=== PATIENT | female | born 1990 | race Caucasian/White ===

== ENCOUNTER 2022-08-02 23:32 | Emergency (ER) | payer OTHER, BC ==
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
[2022-08-03] MEDS ORDERED: Cyclobenzaprine 10 MG PO ONE (00:01)
[2022-08-03] MEDS ORDERED: Cyclobenzaprine 10 MG ONE (00:06)
[2022-08-03 00:25] LABS: HCG URINE TEST NEGATIVE (NEGATIVE)
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
[2022-08-03 02:38] VITALS: BP 153/89; PULSE 87; O2SAT 97
== END 2022-08-03 01:57 | disposition home or self-care (01) ==
LOC: ED 23:32
DX: S13.4XXA Sprain of ligaments of cervical spine, initial encounter (principal); M62.838 Other muscle spasm; V89.2XXA Person injured in unspecified motor-vehicle accident, traffic, initial encounter; R51.9 Headache, unspecified; M54.2 Cervicalgia
CPT/HCPCS: 36415; 70450; 72125; 81025; 99285; A9270-GY